=== PATIENT | female | born 1960 | race Two or more races ===

== ENCOUNTER → 2016-04-25 | Day surgery (SDC) | payer MEDICARE, OTHER ==
[~2016-04-25] VITALS: Ht 157.5 cm; Wt 64.9 kg
[2016-04-25] VITALS (8 sets, daily range): BP systolic 155–214; BP diastolic 77–95
[~2016-04-25] MED LIST: AMLODIPINE BESYL5 MG ORAL; Avastin 10mg Inj IVITRE ONE; BSS 15ml BTL ONE; BSS 500ml btl ONE; Bupivacaine 0.75% 30ml vial INJ ONE; CALCIUM ACETAT667 MG PO; CARVEDILOL6.25 MG ORAL; CLONIDINE HCL0.2 MG PO; Dexamethasone 4mg/ml vial ONE; EPINEPHrine 1mg/1ml Amp ONE; FOLIC ACID1 MG ORAL; FUROSEMIDE40 MG/5 ML ORAL; Hydromorphone 0.5mg/0.5ml inj IVP PRN; KLOR-CON 1010 MEQ ORAL; Kenalog-10 5ml Inj ONE; Ketorolac 30mg Inj IV PRN; LANTUS SOL100 UNIT/1 SUBQ; LOSARTAN POTASS50 MG ORAL; Lidocaine 2% MPF 5ml Vial INJ ONE; Maxitrol Opth Oint 3.5gm ONE; Midazolam 2mg/2ml Inj ONE; NS Irrig 1000ml ONE; Norco 5mg/325mg tab ORAL PRN; OMEPRAZOLE20 M2 ORAL; Povidone-Iodine 5% opth solution ONE; Pred Forte 1% Opth Susp 1ml RIGHT EYE SCH; Propofol 10mg/ml 20ml IV ONE; RENA-VITE TABL0.8 M1 PO; Sodium Hyaluronate 10 mg/ml 0.85ml ONE; Sterile Water Irrig 1000ml IRRIG ONE; ZOCOR20 M1 ORAL; fentaNYL 100 mcg/2 mL IV ONE; fentaNYL 100 mcg/2 mL IV PRN
--- NOTE | 2016-04-25 06:29 | Pre-Procedure Note/Attestation ---
Pre-Procedure Note/Attestation Complete Prior to Procedure Planned Procedure: right Procedure Narrative: PPV, membrane peel, endolaser, Avastin injection R eye Indications for Procedure Pre-Operative Diagnosis: Vitreous hemorrhage R eye Attestation I attest that I discussed the nature of the procedure; its benefits; risks and complications; and alternatives (and the risks and benefits of such alternatives ), prior to the procedure, with the patient (or the patient's legal sales representatives). I attest that, if there was a reasonable possibility of needing a blood transfusion, the patient (or the patient's legal sales representatives) was given the [facility] standardized written summary, pursuant to the [employer] Blood Safety Act ([place] Health and Safety Code # 1645, as amended). I attest that I re-evaluated the patient just prior to the surgery and that there has been no change in the patient's H&P, except as documented below: LEBRON PRADO Apr 25, 2016 06:29
[2016-04-25] MEDS: Phenylephrine 2.5% Op Soln RIGHT EYE SCH ×3 (07:29→08:19)
[2016-04-25] MEDS: Cyclopentolate 1% Opth Sol RIGHT EYE SCH ×3 (07:30→08:19)
[2016-04-25] MEDS: Flurbiprofen 0.03% Opth Sol 2.5ml RIGHT EYE SCH ×3 (07:31→08:20)
[2016-04-25] MEDS: Gatifloxacin Opth Solution 0.5% RIGHT EYE SCH ×3 (07:31→08:20)
[2016-04-25 08:12] LABS: BASOPHILS % (AUTO) 1.4 % (0.0-2.0); EOSINOPHILS % (AUTO) 2.7 % (0.0-3.0); LYMPHOCYTES % (AUTO) 24.2 % (20.0-45.0); MEAN CORPUSCULAR HEMOGLOBIN 28.5 PG (27.0-31.0); MEAN CORPUSCULAR HGB CONC 34.4 G/DL (32.0-36.0); MEAN CORPUSCULAR VOLUME 83 FL (80-99); MEAN PLATELET VOLUME 6.8 FL (6.5-10.1); MONOCYTES % (AUTO) 6.6 % (1.0-10.0); PLATELET COUNT 243 K/UL (150-450); RED BLOOD COUNT 4.37 M/UL (4.20-5.40); RED CELL DISTRIBUTION WIDTH 11.7 % (11.6-14.8); WHITE BLOOD COUNT 5.2 K/UL (4.8-10.8)
[2016-04-25 08:18] LABS: CALCIUM 8.8 mg/dL (8.6-10.2); CREATININE 3.8 mg/dL (0.5-0.9); GLOMERULAR FILTRATION RATE 12.2 mL/min (>60); POTASSIUM 3.5 mEQ/L (3.4-4.9)
--- NOTE | 2016-04-25 09:18 | Pre-op HX & Phy Repo 2 SIG ---
DATE OF ADMISSION: 04/22/2016 DATE OF SURGERY: 04/25/2016 PREOPERATIVE DIAGNOSIS: Dense vitreous hemorrhage, right eye. BRIEF NOTE: This is a first [place] admission for the patient who is a 55-year-old lady with a long history of severe proliferative diabetic retinopathy. She has a nonclearing vitreous hemorrhage on the right. Her past ocular history is remarkable for a vitrectomy done elsewhere and the left eye in July of 2013. She has had very poor vision on that side since that point. The right eye had reasonable vision in 2014, but a large vitreous hemorrhage has occurred and severely restricted her mobility because of the hemorrhage occurring in the better of the two eyes. She is admitted for vitrectomy on that side. PAST MEDICAL HISTORY: Remarkable for diabetes for at least seven years or possibly longer. She also has hypertension. 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 ALLERGIES: She has no allergies. SOCIAL HISTORY: She does not smoke or drink. Best vision at the time of admission was counting fingers at 2 feet in the right eye and 2400 in the left with pressures of 15. The anterior segment showed a significant nuclear sclerotic cataract on the right eye and the left showed a posterior chamber lens. Fundus exam on the right showed a very dense vitreous hemorrhage. The retina appeared attached. The left showed extensive panretinal laser with a moderately pale nerve. PHYSICAL EXAMINATION: GENERAL: Physical examination will be done by Dr. Quezada. ASSESSMENT: 1. Dense nonclearing vitreous hemorrhage, right eye. PLAN: The plan is to perform a pars plana vitrectomy with membrane dissection, endolaser, and additional Avastin injections in each. The risks and benefits of surgery have been gone over with the patient including potential for infection, glaucoma, worsening of the cataract, retinal detachment, the possibility of loss of the eye. The risk of anesthesia was discussed. The patient understands and consents to the surgery, which will be performed on Monday. Miles Chris M.D. DR: Golden JOB#: [id number] CC: HARRIS
--- NOTE | 2016-04-25 09:31 | Anethesia Preoperative Eval ---
Anesthesia Pre-op PMH/ROS General Date of Evaluation: Apr 25, 2016 Time of Evaluation: 08:56 Anesthesiologist: Poonam ASA Score: ASA 2 Mallampati Score Class I : Soft palate, uvula, fauces, pillars visible Class II: Soft palate, uvula, fauces visible Class III: Soft palate, base of uvula visible Class IV: Only hard plate visible Mallampati Classification: Class II Surgeon: Dot Diagnosis: Vitreous Hemorhage Surgical Procedure: Vitrectomy Family History: no anesthesia problems Allergies: Coded Allergies: No Known Allergies (Unverified , 04/18/16) Medications: see eMAR Past Medical History Cardiovascular: Reports: HTN Pulmonary: Reports: other - CHF before dialysis Gastrointestinal/Genitourinary: Reports: ESRD Neurologic/Psychiatric: Denies: CVA, TIA, dementia, depression/anxiety, other Endocrine: Reports: DM Hematology/Immune: Denies: DVT, anemia, bleeding disorder, other Musculoskeletal/Integumentary: Reports: DJD Anesthesia Pre-op Phys. Exam Physician Exam Last Vital Signs Date Time Temp Pulse Resp B/P Pulse Ox O2 Delivery O2 Flow Rate FiO2 04/25/16 08:30 61 18 193/79 99 Room Air 04/25/16 08:13 97.6 Constitutional: NAD Neurologic: CN 2-12 intact Cardiovascular: RRR Respiratory: CTA Gastrointestinal: S/NT/ND Airway Exam Mallampati Score: Class II Anesthesia Pre-op A/P Labs Hematology Test 04/25/16 07:40 White Blood Count 5.2 K/UL (4.8-10.8) Red Blood Count 4.37 M/UL (4.20-5.40) Hemoglobin 12.4 G/DL (12.0-16.0) Hematocrit 36.2 % (37.0-47.0) L Mean Corpuscular Volume 83 FL (80-99) Mean Corpuscular Hemoglobin 28.5 PG (27.0-31.0) Mean Corpuscular Hemoglobin Concent 34.4 G/DL (32.0-36.0) Red Cell Distribution Width 11.7 % (11.6-14.8) Platelet Count 243 K/UL (150-450) Mean Platelet Volume 6.8 FL (6.5-10.1) Neutrophils (%) (Auto) 65.0 % (45.0-75.0) Lymphocytes (%) (Auto) 24.2 % (20.0-45.0) Monocytes (%) (Auto) 6.6 % (1.0-10.0) Eosinophils (%) (Auto) 2.7 % (0.0-3.0) Basophils (%) (Auto) 1.4 % (0.0-2.0) Chemistry Test 04/25/16 07:40 Sodium Level 137 mEQ/L (135-145) Potassium Level 3.5 mEQ/L (3.4-4.9) Chloride Level 95 mEQ/L (98-107) L Carbon Dioxide Level 28 mEQ/L (20-30) Anion Gap 14 (5-15) Blood Urea Nitrogen 24 mg/dL (7-23) H Creatinine 3.8 mg/dL (0.5-0.9) H Estimat Glomerular Filtration Rate 12.2 mL/min (>60) Glucose Level 126 mg/dL (74-106) H Calcium Level 8.8 mg/dL (8.6-10.2) NIKOLAY HAQUE M.D. Apr 25, 2016 09:31
--- NOTE | 2016-04-25 09:55 | Brief Operative Note ---
Immediate Post Operative Note Operative Note Chief Complaint: clouds in vision R eye Pre-op Diagnosis: Vitreous hemorrhage R eye Procedure: PPV, membrane peel, endolaser 1315 spots, Kenalog injection, Avastin injection 1.25 mg R eye Post-op Diagnosis: same as pre-op Surgeon: aura Anesthesiologist: audi Specimen: none Complications: none Condition: stable Estimated Blood Loss: none Drains: none Implant(s) used?: No LEBRON PRADO Apr 25, 2016 09:55
--- NOTE | 2016-04-25 17:28 | Operative Note - Dictated ---
DATE OF OPERATION: 04/25/2016 PREOPERATIVE DIAGNOSIS: Vitreous hemorrhage with traction, right eye. POSTOPERATIVE DIAGNOSIS: Vitreous hemorrhage with traction, right eye. PROCEDURES: 1. Pars plana vitrectomy. 2. Membrane peel. 3. Endolaser. 4. Kenalog injection. 5. Avastin injection, right eye. SURGEON: Miles Chris M.D. MATERIALS ASSISTANT: None. ANESTHESIA: Local sedation. ANESTHESIOLOGIST: Ming Levin M.D. JUSTIFICATION FOR SURGERY: This 55-year-old lady with a long history of diabetes, developed recurrent hemorrhaging and distortion in the macula of the right eye associated with severe diabetic retinopathy. BRIEF NOTE: The patient was brought to the operative room, placed on OR table in supine position. After a time-out was performed and agreed upon by the staff and initial monitoring secured by Dr. Levin, retrobulbar and Van Lint blocks given in standard way. When the blocks taken effect, she was prepped and draped in normal manner. A lid speculum was inserted into the right eye. Using a 23-gauge trocar system, cannulas were placed in all except infranasal quadrant. Infusion secured inferotemporally. Vitrectomy was begun posterior to the lens taking care to avoid contact. A central core vitrectomy was done followed by peripheral vitrectomy leaving a small vitreous skirt. The posterior viewing lens was then inserted and using intraocular forceps, the attending membrane was engaged in the superior portion of the macula and gently peeled towards the supranasal direction. Adhesions between the membrane and retina were then severed using a vitreous cutter as a pick. This went without difficulty. No significant bleeding was encountered. The vitrectomy was then carried further peripherally leaving only a small vitreous skirt. Kenalog had been used to aid in visualization of the vitreous. At this juncture, the Endolaser was brought to the eye, and with power of 0.3 browne and duration of 0.2 seconds, a total of 1315 lesions were applied in a broad band extending out to near the ora paulo and just posterior to the equator. Scleral depression was then performed and no peripheral breaks, tears, or detachments were seen. The two superior cannulas were removed and through the infusion cannula, Avastin 1.25 mg was injected. The eye was reinflated and this cannula also removed. The wounds were massaged and all were noted to be self-sealing. Subconjunctival Decadron and gentamicin were then injected inferiorly and Maxitrol and atropine ointments were instilled. The eye was patched and shielded. The patient was taken to recovery in excellent condition. No complications. Miles Chris M.D. DR: IESHA JOB#: [id number] CC:
--- NOTE | 2016-04-26 17:38 | Pre-op HX & Phy Repo 2 SIG ---
DATE OF ADMISSION: 04/25/2016 NOTE: POOR AUDIO QUALITY REASON FOR EVALUATION: I was asked by Dr. Miles Chris to see this 55-year-old female, who is going for elective surgery on the right eye due to vitreous hemorrhage right eye. Please see history and physical by cooler conveyor loader, Dr. Miles Chris. PAST MEDICAL HISTORY/REVIEW OF SYSTEMS: Remarkable for history of insulin-dependent diabetes mellitus, end-stage renal disease, the patient is on peritoneal dialysis, remote history of hypertension, GERD. No history of respiratory problems, asthma, or bronchitis. History of . No chest pain. No cardiac problems. PAST SURGICAL HISTORY: Cataracts bilaterally, total hysterectomy, . ALLERGIES: Not known. MEDICATIONS: Include mg daily, amlodipine 5 mg, clonidine 0.2 mg, , Lantus 15 units daily, folic acid, calcium supplement, , simvastatin, Coreg 6.25 mg, . FAMILY HISTORY: Mother at age of 93 from stroke. SOCIAL HISTORY: Denies tobacco use or alcohol use. No . PHYSICAL EXAMINATION: GENERAL: The patient is a small framed female. Weight 143 pounds, height 5 feet and 3 inches tall. The patient is alert. VITAL SIGNS: Blood pressure 219/95, temperature 97.6 degrees, pulse 50, O2 saturation 100% on room air. SKIN: Dry. Skin pigmentation of back . No rashes. LYMPH NODE: Not enlarged. HEENT: Head, normocephalic. Normal turgor. Mouth, clear and moist. No dentures. Tongue midline. Eyes, full description per Dr. Miles Chris. Ears, clear, no discharge. Hearing intact. Nose clear, no discharge. NECK: Supple. No jugular venous distention. Carotids are +2. Trachea is midline. CHEST: No deformity or asymmetry. LUNGS: Clear. No rales or rhonchi. HEART: No murmur. No S3 or S4. ABDOMEN: Soft. No organomegaly. No rebound. GENITOURINARY: No dysuria. CVA, nontender. The patient is on dialysis and oliguric. EXTREMITIES: No edema. No varicose veins. No calf tenderness. LABORATORY AND DIAGNOSTIC DATA: ECG shows sinus tachycardia . Fasting blood sugar 114. The patient did not eat or drink for last night. IMPRESSION: 1. Vitreous hemorrhage, right eye. 2. Hypertension, poor control. 3. Insulin-dependent diabetes mellitus. 4. Gastroesophageal reflux disease. 5. End-stage renal disease on peritoneal dialysis. 6. Anemia secondary to end-stage renal disease. 7. per ECG. PLAN: Pars plana vitrectomy, right eye per Dr. Miles Chris. RECOMMENDATION: Continue to monitor blood pressure . CONCLUSION: The patient is a 55-year-old female with multiple medical problems including insulin-dependent diabetes mellitus, end-stage renal disease, and hypertension. The patient's condition optimized for surgery. Thank you very much, Dr. Miles Chris, for privilege to participate in presurgical care of this interesting patient. Jasbir Quezada M.D. DR: Edgardo JOB#: [id number] CC:
--- NOTE | 2016-04-28 14:11 | Cardiology Report ---
APPROVED REPORT EKG Measurement Heart [id number] Sinus bradycardia Cannot rule out Inferior infarct, age undetermined Abnormal ECG
[2016-04-29 10:24] VITALS: BP 140/80
--- NOTE | 2016-04-29 10:25 | 48 Hour Post Anesthesia Eval ---
Post Anesthesia Evaluation Procedure: vitrectomy Date of Evaluation: Apr 25, 2016 Time of Evaluation: 12:00 Blood Pressure Systolic: 140 0: 80 Pulse Rate: 80 Respiratory Rate: 20 Temperature (Fahrenheit): 98 O2 Sat by Pulse Oximetry: 97 Airway: patent Nausea: No Vomiting: No Pain Intensity: 2 Hydration Status: adequate Cardiopulmonary Status: Stable Mental Status/LOC: patient returned to baseline Follow-up Care/Observations: na Post-Anesthesia Complications: na Follow-up care needed: N/A NIKOLAY HAQUE M.D. Apr 29, 2016 10:24
== END | disposition home or self-care (01) ==
LOC: SUR 05:41
DX: H43.11 Vitreous hemorrhage, right eye (principal); H43.821 Vitreomacular adhesion, right eye; E11.3591 Type 2 diabetes mellitus with proliferative diabetic retinopathy without macular edema, right eye; Z79.4 Long term (current) use of insulin; I12.0 Hypertensive chronic kidney disease with stage 5 chronic kidney disease or end stage renal disease; N18.6 End stage renal disease; Z99.2 Dependence on renal dialysis; D63.1 Anemia in chronic kidney disease; R00.1 Bradycardia, unspecified; M19.90 Unspecified osteoarthritis, unspecified site; K21.9 Gastro-esophageal reflux disease without esophagitis; Z90.710 Acquired absence of both cervix and uterus
CPT/HCPCS: 36415; 67042; 80048; 82962; 85025; 93005; J0171; J0360; J1100; J2250; J2704; J3010; J3301; J3470; J3490; J9035; 94003; 94150